=== PATIENT | female | born 1980 | race African-American/Black ===

== ENCOUNTER 2016-12-31 20:38 | Emergency (ER) | payer MEDICAID, OTHER ==
--- NOTE | 2016-12-31 21:54 | RAD ---
AP CHEST: History: Chest pain. Date: 12-31-16 FINDINGS: The lungs are well aerated. No evidence of active intrathoracic disease is seen. No evidence of effu sions, pneumonia or pneumothorax is seen. IMPRESSION: Unremarkable AP chest. POS: [facility]
== END 2016-12-31 22:30 | disposition home or self-care (01) ==
LOC: ERS 20:38
DX: R07.89 Other chest pain (principal); D64.9 Anemia, unspecified; F41.9 Anxiety disorder, unspecified; F17.210 Nicotine dependence, cigarettes, uncomplicated
CPT/HCPCS: 71010; 93005

== ENCOUNTER 2017-07-15 18:58 | Emergency (ER) | payer OTHER, SELFPAY ==
[2017-07-15 19:27] LABS: #Basophils 0.1 thou/uL (0.0-0.2); #Eosinphils 0.2 thou/uL (0.0-0.7); #Lymphocytes 3.1 thou/uL (1.20-3.40); #Monocytes 0.6 thou/uL (0.11-0.59); #Neutrophils 5.2 thou/uL (1.40-6.50); %Basophils 0.9 % (0.0-1.0); %Eosinophils 2.4 % (0.0-10.0); %Lymphocytes 33.1 % (21.0-51.0); %Monocytes 6.9 % (0.0-10.0); %Neutrophils 56.6 % (42.0-75.0); Hemoglobin 10.1 g/dL (12.0-16.0); Mean Corpuscular HGB CONC 30.7 g/dL (32.0-36.0); Mean Corpuscular Volume 65.4 fl (81.0-99.0); Mean Platelet Volume 5.1 fL (7.4-10.4); Platelet Count 362 thou/uL (130-400); RBC Distribution Width 21.7 % (11.5-14.5); Red Blood Cell (RBC) Count 5.02 mill/uL (4.20-5.40); White Blood Cell (WBC) Count 9.2 thou/uL (4.8-10.8)
[2017-07-15] MEDS ORDERED: Acetaminophen 500 MG TAB ONE (19:36)
[2017-07-15 19:46] LABS: ALT (SGPT) 21 U/L (8-55); AST (SGOT) 38 U/L (5-34); Albumin 3.9 g/dL (3.5-5.0); Alkaline Phosphatase 80 U/L (40-150); Anion Gap 11 mmol/L (10-20); BUN (Urea Nitrogen) 5 mg/dL (7.0-18.7); Bilirubin, Total 0.3 mg/dL (0.2-1.2); CK (CPK) 59 U/L (29-168); Calc. Creatinine Clearance 0 mL/min (70-130); Calcium 9.3 mg/dL (7.8-10.44); Carbon Dioxide 26 mmol/L (22-29); Chloride 105 mmol/L (98-107); Estimated GFR-MDRD Greater than 90; Globulin 3.2 g/dL (2.4-3.5); Glucose 99 mg/dL (70-105); Potassium 3.6 mmol/L (3.5-5.1); Protein, Total 7.1 g/dL (6.0-8.3); Sodium 138 mmol/L (136-145)
[2017-07-15 19:48] LABS: Anisocytosis MODERATE=16-30 cells (100X) (0-5/hpf); Elliptocytes SLIGHT = 2-5 cells (100X) (0-1/hpf); Hypochromia SLIGHT = 6-15 cells (100X) (0-5/hpf); MDiff Complete? YES; Microcytosis SLIGHT = 6-15 cells (100X) (0-5/hpf); Ovalocytes SLIGHT = 2-5 cells (100X) (0-1/hpf); PLT Morphology Comment Appears Adequate; Polychromasia MODERATE = 3-4 cells (100X) (0-2/hpf); Target Cells SLIGHT = 2-5 cells (100X) (0-1/hpf)
[2017-07-15 19:51] LABS: CKMB 0.5 ng/mL (0-6.6); Troponin I Less than 0.010 ng/mL (< 0.028)
--- NOTE | 2017-07-15 19:55 | RAD ---
PORTABLE CHEST: HISTORY: Chest pain. COMPARISON: 12/31/2016 FINDINGS: Heart size and mediastinum are within normal limits. Lungs are clear of infiltrates. No signs of fa ilure. IMPRESSION: No active intrathoracic disease. POS: [facility]
[2017-07-15] MEDS ORDERED: Mag-Al 1200 mg/1200 mg/30 ML UDCUP ONE (19:58)
[2017-07-15] MEDS ORDERED: Lidocaine Viscous Sol 2% 15 ml UD Cup ONE (19:58)
== END 2017-07-15 21:20 | disposition home or self-care (01) ==
LOC: ERS 18:58
DX: K21.9 Gastro-esophageal reflux disease without esophagitis (principal); K29.70 Gastritis, unspecified, without bleeding; Z71.6 Tobacco abuse counseling; D64.9 Anemia, unspecified; I10 Essential (primary) hypertension; F41.9 Anxiety disorder, unspecified; F17.210 Nicotine dependence, cigarettes, uncomplicated
CPT/HCPCS: 36415; 71045; 80053; 82553; 83880; 84484; 85025; 93005; 99406

== ENCOUNTER 2017-10-13 14:58 | Emergency (ER) | payer MEDICAID, SELFPAY ==
[2017-10-13 15:27] LABS: BHCG - Serum Negative (NEGATIVE); Pregs Control Background? CLEAR/WHITE (CLR/WHITE); Pregs Control Bar Appear? YES (CONTROL BAR)
[2017-10-13 15:42] LABS: ALT (SGPT) 17 U/L (8-55); AST (SGOT) 43 U/L (5-34); Alkaline Phosphatase 83 U/L (40-150); Anion Gap 15 mmol/L (10-20); BUN (Urea Nitrogen) 5 mg/dL (7.0-18.7); Bilirubin, Total 0.4 mg/dL (0.2-1.2); CK (CPK) 77 U/L (29-168); Calc. Creatinine Clearance 0 mL/min (70-130); Calcium 8.8 mg/dL (7.8-10.44); Carbon Dioxide 20 mmol/L (22-29); Chloride 106 mmol/L (98-107); Estimated GFR-MDRD Greater than 90; Globulin 3.4 g/dL (2.4-3.5); Glucose 92 mg/dL (70-105); Lipase 14 U/L (8-78); Protein, Total 7.4 g/dL (6.0-8.3); Sodium 137 mmol/L (136-145)
[2017-10-13] MEDS ORDERED: Lorazepam 2 MG/ML VIAL ONE (15:44)
--- NOTE | 2017-10-13 15:44 | RAD ---
RADIOGRAPH CHEST 1 VIEW: HISTORY: 37-year-old female with dyspnea. FINDINGS: The visualized lung talley are clear. The cardiomediastinal silhouette and hilar shadows are normal. The lateral costophrenic angles are sharp. The osseous structures appear normal. There is no pneu mothorax. IMPRESSION: Negative. delores [] POS: [facility]
[2017-10-13 15:45] LABS: Hemoglobin 11.6 g/dL (12.0-16.0); Red Blood Cell (RBC) Count 4.88 mill/uL (4.20-5.40); White Blood Cell (WBC) Count 5.7 thou/uL (4.8-10.8)
[2017-10-13 15:46] LABS: CKMB 0.8 ng/mL (0-6.6); Troponin I Less than 0.010 ng/mL (< 0.028)
[2017-10-13 15:53] LABS: #Basophils 0.1 thou/uL (0.0-0.2); #Eosinphils 0.1 thou/uL (0.0-0.7); #Lymphocytes 2.4 thou/uL (1.20-3.40); #Monocytes 0.4 thou/uL (0.11-0.59); #Neutrophils 2.7 thou/uL (1.40-6.50); %Basophils 1.2 % (0.0-1.0); %Eosinophils 2.1 % (0.0-10.0); %Lymphocytes 41.8 % (21.0-51.0); %Monocytes 7.7 % (0.0-10.0); %Neutrophils 47.1 % (42.0-75.0); Anisocytosis SLIGHT = 6-15 cells (100X) (0-5/hpf); MDiff Complete? YES; Mean Corpuscular HGB CONC 33.2 g/dL (32.0-36.0); Mean Corpuscular Hemoglobin 23.7 pg (27.0-31.0); Mean Corpuscular Volume 71.3 fL (78.0-98.0); Mean Platelet Volume 5.1 fL (7.4-10.4); Microcytosis SLIGHT = 6-15 cells (100X) (0-5/hpf); Ovalocytes SLIGHT = 2-5 cells (100X) (0-1/hpf); Platelet Count 279 thou/uL (130-400); Poikilocytosis SLIGHT = 6-15 cells (100X) (0-5/hpf); RBC Distribution Width 24.3 % (11.5-14.5); Target Cells SLIGHT = 2-5 cells (100X) (0-1/hpf)
== END 2017-10-13 17:00 | disposition home or self-care (01) ==
LOC: ERS 14:58
DX: R06.02 Shortness of breath (principal); Z71.6 Tobacco abuse counseling; D64.9 Anemia, unspecified; I10 Essential (primary) hypertension; K21.9 Gastro-esophageal reflux disease without esophagitis; F17.210 Nicotine dependence, cigarettes, uncomplicated
CPT/HCPCS: 36415; 71045; 80053; 82553; 83690; 84484; 84703; 85025; 85379; 93005; 94760; 96374; 99406; J2060

== ENCOUNTER 2018-06-03 01:17 | Emergency (ER) | payer MEDICAID, SELFPAY | END 2018-06-03 03:11 | disposition home or self-care (01) | LOC: ERS 01:17 | DX: R51 Headache (principal); D64.9 Anemia, unspecified; I10 Essential (primary) hypertension; K21.9 Gastro-esophageal reflux disease without esophagitis; F41.9 Anxiety disorder, unspecified; F17.210 Nicotine dependence, cigarettes, uncomplicated; Z79.51 Long term (current) use of inhaled steroids | CPT/HCPCS: 87804; 99284 ==

== ENCOUNTER 2019-08-22 06:45 | Observation (INO) | payer OTHER, SELFPAY ==
--- NOTE | 2019-08-22 08:17 | RAD ---
Exam: Chest one view HISTORY:Chest pain Comparison: 10/13/2017 FINDINGS: Cardiac silhouette: Normal Aorta: Unremarkable Pulmonary vessels: Normal Costophrenic angles: Clear LUNGS: No masses or consolidation. Pneumothorax: None Osseous abnormalities: None IMPRESSION: No acute cardiopulmonary process.
[2019-08-22] MEDS ORDERED: Acetaminophen 500 MG TAB ONE (08:23)
[2019-08-22] MEDS ORDERED: Nitroglycerin 2% Ointment 1 INCH/1 GM Packet ONE (08:23)
[2019-08-22 09:12] LABS: BHCG - Serum Negative (NEGATIVE); Pregs Control Background? CLEAR/WHITE (CLR/WHITE); Pregs Control Bar Appear? YES (CONTROL BAR)
[2019-08-22 09:20] LABS: #Basophils 0.1 thou/uL (0.0-0.2); #Eosinphils 0.1 thou/uL (0.0-0.7); #Lymphocytes 2.2 thou/uL (1.20-3.40); #Monocytes 0.5 thou/uL (0.11-0.59); #Neutrophils 5.2 thou/uL (1.40-6.50); %Basophils 0.8 % (0.0-1.0); %Eosinophils 1.8 % (0.0-10.0); %Lymphocytes 26.8 % (21.0-51.0); %Monocytes 6.4 % (0.0-10.0); %Neutrophils 64.3 % (42.0-75.0); Anisocytosis MODERATE=16-30 cells (100X) (0-5/hpf); Hemoglobin 8.5 g/dL (12.0-16.0); Hypochromia MODERATE=16-30 cells (100X) (0-5/hpf); Large Platelets SLIGHT; Lymphocytes 15 % (21-51); MDiff Complete? YES; Mean Corpuscular HGB CONC 29.7 g/dL (32.0-36.0); Mean Corpuscular Hemoglobin 18.1 pg (27.0-31.0); Mean Corpuscular Volume 60.9 fL (78.0-98.0); Monocytes 1 % (0-10); Neutrophil 84 % (42-75); Platelet Morphology Comment PLT clumps seen-ADEQ; RBC Distribution Width 22.7 % (11.5-14.5); Red Blood Cell (RBC) Count 4.69 mill/uL (4.20-5.40); White Blood Cell (WBC) Count 8.2 thou/uL (4.8-10.8)
[2019-08-22 09:31] LABS: ALT (SGPT) 24 U/L (8-55); AST (SGOT) 41 U/L (5-34); Alkaline Phosphatase 99 U/L (40-110); Anion Gap 11 mmol/L (10-20); BUN (Urea Nitrogen) 5 mg/dL (7.0-18.7); Bilirubin, Total 0.7 mg/dL (0.2-1.2); CK (CPK) 51 U/L (29-168); Calc. Creatinine Clearance 0 mL/min (70-130); Calcium 8.7 mg/dL (7.8-10.44); Carbon Dioxide 25 mmol/L (22-29); Chloride 105 mmol/L (98-107); Estimated GFR-MDRD Greater than 90; Globulin 3.3 g/dL (2.4-3.5); Glucose 94 mg/dL (70-105); Lipase 9 U/L (8-78); Potassium 3.7 mmol/L (3.5-5.1); Protein, Total 7.3 g/dL (6.0-8.3); Sodium 137 mmol/L (136-145)
[2019-08-22] MEDS ORDERED: Ondansetron PF 4 MG/2 ML Vial IVP PRN (10:39)
[2019-08-22] MEDS ORDERED: Acetaminophen 325 MG TAB PO PRN (10:39)
[2019-08-22] MEDS ORDERED: Senokot S 8.6-50 MG TAB PO PRN (10:39)
[2019-08-22 12:24] VITALS: BMI 30.2
[2019-08-22] MEDS ORDERED: Mag-Al 1200 mg/1200 mg/30 ML UDCUP PO PRN (14:17)
[2019-08-22] MEDS: ALPRAZolam 0.25 MG TAB PO PRN ×2 (14:33→20:28)
--- NOTE | 2019-08-22 18:05 | HP ---
CHIEF COMPLAINT: Chest pain. HISTORY OF PRESENT ILLNESS: A 39-year-old female without significant past medical history, presented with cough and diarrhea of a few days' duration. She does have a smoker's cough. She did have some chest pressure and burning sensation this morning and she got 4 doses of baby aspirin and 1 nitroglycerin in the ER, but she did have some ongoing bowel pressure. The initial labs are quite unremarkable except hemoglobin 8.2. Her initial chest x-ray is negative. Troponin negative. EKG showed nonspecific ST-T wave changes in lead II, II, and aVF. The patient is brought in because of concern for COVID . The patient has no history of [place] or stroke in the past. She is not on any blood pressure medications and she is not diabetic. REVIEW OF SYSTEMS: A 13-point review of systems reviewed. Pertinents are addressed in the history of present illness. No fever, night sweats, or chills. She does have a smoker's cough in the morning. No nausea, vomiting, abdominal pain, constipation, diarrhea, hematuria, dysuria, or hematochezia. ALLERGIES: SHE HAS NO KNOWN DRUG ALLERGY. MEDICATIONS: 1. Aspirin 81 mg daily. 2. Ferrous sulfate 325 twice a day. 3. Folic acid 1 mg daily. 4. Potassium chloride 20 mEq. 5. Thiamine 100 mg daily. PAST MEDICAL HISTORY: 1. Chronic anemia. 2. . SOCIAL HISTORY: Smokes daily a few cigarettes. Occasional alcohol. FAMILY HISTORY: Father had type 2 diabetes mellitus. Mother had asthma symptoms. PHYSICAL EXAMINATION: VITAL SIGNS: Temperature 98.5, pulse 79, blood pressure 141/87, and saturating 100% in the room air. GENERAL: She is alert and oriented. She is actually quite anxious to go home as she feels that her children will be left alone in the house. CARDIOVASCULAR: Regular rate and rhythm without murmurs, rubs, or gallops. LUNGS: Clear to auscultation bilaterally without wheezing, rales, or rhonchi. ABDOMEN: Soft, nontender, and nondistended. Good bowel sounds. EXTREMITIES: Without any pitting edema. NEUROLOGIC: No focal deficits. PSYCHIATRIC: Appropriate. She is a little distressed with the fact that she needs to stay here for overnight. LABORATORY DATA: Sodium is 137 and creatinine is 0.84. Rest of the BMP panel normal range. Troponin x3 negative. CBC in the normal range except hemoglobin of 8.5. Chest x-ray negative without any infiltrate. EKG, sinus with a rate of 82 beats per minute. IMPRESSION AND PLAN: This is a 39-year-old female without significant past medical history, had a smoker's cough and some loose stools, admitted for overnight observation to rule out COVID . I am waiting for more lab results to ascertain. However, since this was concern for a COVID and patient has 3 children at home, we will wait for results to be negative. She can continue with outpatient workup through her primary care physician for cardiac ischemic workup. At this point, I do not see any clinical indication to put her through a stress test. Await COVID results. Continue her home medications. Job ID: [id number] [facility]
[2019-08-22] MEDS: Ferrous Sulfate 325 MG TAB PO SCH (18:30)
[2019-08-23] MEDS ORDERED: Potassium Chloride 20 MEQ TAB PO SCH (08:00)
[2019-08-23] MEDS ORDERED: Multivitamin W/ Minerals 1 TAB PO SCH (09:00)
[2019-08-23] MEDS ORDERED: Folic Acid 1 MG TAB PO SCH (09:00)
[2019-08-23] MEDS ORDERED: Thiamine 100 MG TAB PO SCH (09:00)
[2019-08-23] MEDS ORDERED: Aspirin 81 mg Enteric Coated Tablet PO SCH (09:00)
[2019-08-23] MEDS: Ferrous Sulfate 325 MG TAB PO SCH (09:11)
[2019-08-23] MEDS: ALPRAZolam 0.25 MG TAB PO PRN (09:12)
[2019-08-23 09:22] LABS: INR-International Normal Ratio 1.1; PTT 32.6 sec (22.9-36.1); Prothrombin Time 13.7 sec (12.0-14.7)
[2019-08-23 09:28] LABS: D-Dimer Test Less than 0.27 *mcg/mL (0.27-0.43)
[2019-08-23 12:20] LABS: SARS-CoV-2 MS2 Positive; SARS-CoV-2 N Gene Negative; SARS-CoV-2 S Gene Negative; SARS-CoV-2 orf1ab Negative
[2019-08-23 12:33] VITALS: BP 128/74; TEMP 98.8
--- NOTE | 2019-08-24 06:58 | DIS ---
DATE OF ADMISSION: 08/22/2019 DATE OF DISCHARGE: 08/23/2019 DISCHARGE DIAGNOSES: 1. Bronchitis. 2. COVID ruled out. 3. Noncardiac chest pain, probably related to bronchitis. 4. Tobacco abuse. DISCHARGE MEDICATIONS: Thiamine 100 mg daily. PHYSICAL EXAMINATION: VITAL SIGNS: On the day of discharge, temperature 98.8, pulse 79, blood pressure 128/74, saturating 100% on room air. GENERAL: She is alert, oriented, not in any respiratory distress. CARDIOVASCULAR: Regular rate and rhythm without murmurs, rubs, or gallops. LUNGS: Clear. ABDOMEN: Quite benign. HOSPITAL COURSE: This is a 39-year-old female with tobacco abuse and having a morning smoker's cough, presented with chest pain. She ruled out for acute coronary syndrome with serial troponins. EKG, nonspecific ST-T wave changes. Due to her family of 3 children, there was concern for COVID and that was ruled out. If she has recurrent chest pain, she can do outpatient stress test through her primary care physician. She does not require any antibiotics at this time. She is afebrile. She had normal white count. Her D-dimer is 0.27. Activated PTT 32.6. Ferritin level 6.03. Liver function tests in the normal range. Creatinine is 0.84. CRP less than 0.5. The patient is hemodynamically stable, does not have any respiratory dysfunction. Clinically sound enough to be discharged home today. DISCHARGE INSTRUCTIONS: 1. Activity as tolerated. 2. Regular diet. 3. Follow up with the PCP in 1 week. If you have recurrent chest pain, please visit ER or call your PCP. TIME SPENT: Discharge time took over 35 minutes. Job ID: [id number] [facility]
--- NOTE | 2019-08-29 14:18 | EKG ---
Test Reason : EMERGENCY Blood Pressure : / mmHG Vent. Rate : 082 BPM Atrial Rate : 082 BPM P-R Int : 132 ms QRS Dur : 092 ms QT Int : 392 ms P-R-T Axes : 041 048 -13 degrees QTc Int : 457 ms Normal sinus rhythm ST abnormality, possible digitalis effect Abnormal QRS-T angle, consider primary T wave abnormality Abnormal ECG Confirmed by SUSSY OROPEZA M.D. ([id number]), editorial writer JESUS ROONEY ([id number]) on 08/29/2019 2:18:02 PM Referred By: Confirmed By:SUSSY OROPEZA M.D.
== END 2019-08-23 14:30 | disposition home or self-care (01) ==
LOC: ERS 06:45 → 2SW 12:08
PROVIDERS: ADMIT Internal Medicine; ATTEND Internal Medicine
DX: R07.89 Other chest pain (principal); J40 Bronchitis, not specified as acute or chronic; R19.7 Diarrhea, unspecified; F17.210 Nicotine dependence, cigarettes, uncomplicated; Z20.828 Contact with and (suspected) exposure to other viral communicable diseases; Z79.82 Long term (current) use of aspirin; Z79.899 Other long term (current) drug therapy
CPT/HCPCS: 36415; 71045; 80053; 82550; 82728; 83690; 84484; 84703; 85025; 85379; 85610; 85730; 86140; 87635; 93005; G0378; U0003

== ENCOUNTER 2019-09-13 14:41 | Emergency (ER) | payer SELFPAY | END 2019-09-13 16:03 | disposition home or self-care (01) | LOC: ERS 14:41 | DX: R55 Syncope and collapse (principal); D64.9 Anemia, unspecified; I10 Essential (primary) hypertension; K21.9 Gastro-esophageal reflux disease without esophagitis; F41.9 Anxiety disorder, unspecified; F17.210 Nicotine dependence, cigarettes, uncomplicated | CPT/HCPCS: 93005 ==

== ENCOUNTER 2020-01-13 13:14 | Emergency (ER) | payer BC ==
--- NOTE | 2020-01-13 14:45 | RAD ---
PORTABLE CHEST 1 VIEW: Date: 01/13/2020 Time: 1420 hours HISTORY: Chest pain. COMPARISON: 11/07/2019. FINDINGS: The heart size is normal. The lungs are expanded without lobar consolidation, pneumothoraces, or pleu ral effusions. IMPRESSION: No radiographic evidence of acute cardiopulmonary process. POS: [facility]
--- NOTE | 2020-01-16 15:32 | EKG ---
Test Reason : Blood Pressure : / mmHG Vent. Rate : 086 BPM Atrial Rate : 086 BPM P-R Int : 158 ms QRS Dur : 082 ms QT Int : 358 ms P-R-T Axes : 058 046 -31 degrees QTc Int : 428 ms Normal sinus rhythm Possible Left atrial enlargement T wave abnormality, consider inferior ischemia Abnormal ECG Confirmed by ARMAAN THAKKAR ([id number]), associate entertainment editor JESUS ROONEY ([id number]) on 01/16/2020 3:32:28 PM Referred By: Confirmed By:ARMAAN Ace
== END 2020-01-13 14:49 | disposition home or self-care (01) ==
LOC: ERS 13:14
DX: R07.9 Chest pain, unspecified (principal); D64.9 Anemia, unspecified; K21.9 Gastro-esophageal reflux disease without esophagitis; I10 Essential (primary) hypertension; F17.210 Nicotine dependence, cigarettes, uncomplicated
CPT/HCPCS: 71045; 93005; 94760

== ENCOUNTER 2020-03-21 16:21 | Emergency (ER) | payer BC, OTHER ==
[2020-03-21] MEDS ORDERED: Lorazepam 2 MG/ML VIAL ONE (16:43)
--- NOTE | 2020-03-21 16:57 | RAD ---
Chest one view HISTORY: Chest pain. COMPARISON: 01/13/2020. FINDINGS: Cardiac silhouette and pulmonary vasculature are unremarkable. Mediastinum is midline. No confluent airspace consolidation or evidence of pneumothorax. IMPRESSION : No abnormalities are demonstrated.
== END 2020-03-21 18:06 | disposition home or self-care (01) ==
LOC: ERS 16:21
DX: F41.0 Panic disorder [episodic paroxysmal anxiety] (principal); K21.9 Gastro-esophageal reflux disease without esophagitis; D64.9 Anemia, unspecified; F17.210 Nicotine dependence, cigarettes, uncomplicated
CPT/HCPCS: 71045; 93005; 96372; J2060

== ENCOUNTER 2022-03-31 09:14 | Observation (INO) | payer BC, SELFPAY ==
[2022-03-31 10:36] LABS: BHCG - Serum Negative (NEGATIVE); Pregs Control Background? CLEAR/WHITE (CLR/WHITE); Pregs Control Bar Appear? YES (CONTROL BAR)
[2022-03-31 10:52] LABS: ALT (SGPT) 39 U/L (8-55); AST (SGOT) 96 U/L (5-34); Albumin 3.3 g/dL (3.5-5.0); Alkaline Phosphatase 142 U/L (40-110); Anion Gap 13 mmol/L (10-20); BUN (Urea Nitrogen) Less than 4 mg/dL (7.0-18.7); Bilirubin, Total 0.4 mg/dL (0.2-1.2); Calc. Creatinine Clearance 0 mL/min (70-130); Calcium 8.8 mg/dL (7.8-10.44); Carbon Dioxide 26 mmol/L (22-29); Chloride 105 mmol/L (98-107); Estimated GFR 107; Globulin 3.2 g/dL (2.4-3.5); Glucose 94 mg/dL (70-105); Lipase 18 U/L (8-78); Potassium 3.8 mmol/L (3.5-5.1); Protein, Total 6.5 g/dL (6.0-8.3); Sodium 140 mmol/L (136-145)
[2022-03-31 10:54] LABS: #Basophils 0.1 thou/uL (0.0-0.2); #Eosinphils 0.2 thou/uL (0.0-0.7); #Lymphocytes 1.9 thou/uL (1.20-3.40); #Monocytes 0.8 thou/uL (0.11-0.59); #Neutrophils 5.6 thou/uL (1.40-6.50); %Basophils 0.8 % (0.0-1.0); %Eosinophils 1.8 % (0.0-10.0); %Lymphocytes 22.1 % (21.0-51.0); %Monocytes 8.8 % (0.0-10.0); %Neutrophils 66.5 % (42.0-75.0); Anisocytosis MODERATE=16-30 cells (100X) (0-5/hpf); Hemoglobin 9.7 g/dL (12.0-16.0); Hypochromia SLIGHT = 6-15 cells (100X) (0-5/hpf); MDiff Complete? YES; Mean Corpuscular HGB CONC 31.8 g/dL (32.0-36.0); Mean Corpuscular Hemoglobin 22.7 pg (27.0-31.0); Mean Corpuscular Volume 71.6 fl (78.0-98.0); Mean Platelet Volume 10.6 fL (7.4-10.4); Microcytosis MODERATE=15-30 cells (100X) (0-5/hpf); Platelet Count 370 10x3/uL (130-400); Platelet Morphology Comment Appears Adequate; Polychromasia SLIGHT = 2-3 cells (100X) (0-2/hpf); Red Blood Cell (RBC) Count 4.28 mill/uL (4.20-5.40); Target Cells SLIGHT = 2-5 cells (100X) (0-1/hpf); White Blood Cell (WBC) Count 8.4 10x3/uL (4.8-10.8)
[2022-03-31] MEDS ORDERED: Ondansetron PF 4 MG/2 ML Vial IVP PRN (13:41)
[2022-03-31] MEDS ORDERED: HYDROcodone/Acetaminophen 5/325 mg Tablet PO PRN (13:41)
[2022-03-31] MEDS ORDERED: Morphine 2 MG/ML VIAL SLOW IVP PRN (13:41)
[2022-03-31] MEDS ORDERED: Acetaminophen 325 MG TAB PO PRN (13:41)
[2022-03-31] MEDS ORDERED: Nitroglycerin 0.4 MG TAB (25 Tab Bottle) SL PRN (13:41)
[2022-03-31] MEDS ORDERED: Guaifenesin DM 100-10/5 ML UDCUP PO PRN (13:41)
[2022-03-31 13:56] LABS: Troponin I Less than 0.010 ng/mL (< 0.028)
[2022-03-31 14:23] VITALS: BMI 26.0
[2022-03-31 14:40] LABS: Iron 15 ug/dL (50-170); Iron Binding Capacity, Total 401 mcg/dL (265-497)
[2022-03-31 14:40] LABS: Acetaminophen Less than 10.0 mcg/mL (10.0-30.0); Alcohol Less than 10 mg/dL (Less than 10); Salicylate Less than 8.0 mg/dL (15.0-30.0)
[2022-03-31] MEDS ORDERED: Aspirin Chewable 81 MG TAB PO SCH (14:45)
[2022-03-31 15:06] LABS: Ferritin 14.41 ng/mL (10-291)
[2022-03-31] MEDS ORDERED: Ketorolac Tromethamine 30 MG/ML VIAL IVP PRN (16:37)
[2022-03-31] MEDS ORDERED: Mag-Al Plus 1200 MG/1200 MG/120 MG/30 ML UDCUP PO PRN (16:38)
[2022-03-31 16:46] LABS: Troponin I Less than 0.010 ng/mL (< 0.028)
[2022-03-31 17:30] LABS: Amphetamine Not Detected (NotDetected); Barbiturates Screen Not Detected (NotDetected); Benzodiazepine Screen Not Detected (NotDetected); Cocaine Metabolite Screen Not Detected (NotDetected); Methadone Not Detected (NotDetected); Methamphetamine Not Detected (NotDetected); Opiate Screen Not Detected (NotDetected); Oxycodone Screen Not Detected (NotDetected); Phencyclidine (PCP) Not Detected (NotDetected); THC/Cannabinoid Screen Not Detected (NotDetected); Tricyclic Screen Not Detected (NotDetected)
[2022-03-31] MEDS: Ibuprofen 200 MG TAB PO SCH (20:57)
[2022-03-31] MEDS: Metoprolol Tartrate 25 MG TAB PO SCH (20:59)
[2022-03-31] MEDS: ALPRAZolam 1 MG TAB PO PRN (20:59)
[2022-04-01 05:43] LABS: #Basophils 0.1 thou/uL (0.0-0.2); #Eosinphils 0.2 thou/uL (0.0-0.7); #Lymphocytes 1.9 thou/uL (1.20-3.40); #Monocytes 0.6 thou/uL (0.11-0.59); #Neutrophils 4.7 thou/uL (1.40-6.50); %Eosinophils 2.7 % (0.0-10.0); %Lymphocytes 25.4 % (21.0-51.0); %Neutrophils 62.9 % (42.0-75.0); Hemoglobin 9.4 g/dL (12.0-16.0); Mean Corpuscular HGB CONC 30.1 g/dL (32.0-36.0); Mean Corpuscular Hemoglobin 21.7 pg (27.0-31.0); Mean Corpuscular Volume 72.1 fl (78.0-98.0); Mean Platelet Volume 6.7 fL (7.4-10.4); Platelet Count 257 10x3/uL (130-400); RBC Distribution Width 23.2 % (11.5-14.5); Red Blood Cell (RBC) Count 4.33 mill/uL (4.20-5.40); White Blood Cell (WBC) Count 7.5 10x3/uL (4.8-10.8)
[2022-04-01 05:53] LABS: ALT (SGPT) 35 U/L (8-55); AST (SGOT) 58 U/L (5-34); Albumin 3.1 g/dL (3.5-5.0); Alkaline Phosphatase 135 U/L (40-110); Anion Gap 12 mmol/L (10-20); BUN (Urea Nitrogen) 4 mg/dL (7.0-18.7); Bilirubin, Total 0.9 mg/dL (0.2-1.2); Calc. Creatinine Clearance 143 mL/min (70-130); Calcium 9.1 mg/dL (7.8-10.44); Carbon Dioxide 26 mmol/L (22-29); Cardiac Risk 2.4 (Less than 4.5); Chloride 103 mmol/L (98-107); Cholesterol 107 mg/dl (< 200 Desired); Estimated GFR 113; Glucose 86 mg/dL (70-105); HDL Cholesterol 45 mg/dL (>60 Neg Risk); LDL Cholesterol, Calculated 50 mg/dL; Potassium 3.8 mmol/L (3.5-5.1); Protein, Total 6.1 g/dL (6.0-8.3); Sodium 137 mmol/L (136-145); Triglycerides 60 mg/dL (Less than 150)
[2022-04-01] MEDS: Metoprolol Tartrate 25 MG TAB PO SCH (08:21)
[2022-04-01] MEDS: Ibuprofen 200 MG TAB PO SCH (08:23)
[2022-04-01] MEDS ORDERED: Aspirin Chewable 81 MG TAB PO SCH (09:00)
[2022-04-01] MEDS: ALPRAZolam 1 MG TAB PO PRN (10:24)
[2022-04-01 13:50] VITALS: BP 115/80; TEMP 97.8
== END 2022-04-01 16:32 | disposition home or self-care (01) ==
LOC: ERS 09:14 → 2SW 13:07
PROVIDERS: ADMIT Internal Medicine; ATTEND Internal Medicine
DX: R07.82 Intercostal pain (principal); I10 Essential (primary) hypertension; F10.10 Alcohol abuse, uncomplicated; F17.210 Nicotine dependence, cigarettes, uncomplicated; D50.9 Iron deficiency anemia, unspecified; Z20.822 Contact with and (suspected) exposure to COVID-19; Y90.0 Blood alcohol level of less than 20 mg/100 ml
CPT/HCPCS: 36415; 71045; 78452; 80053; 80061; 80306; 80307; 82607; 82728; 83540; 83550; 83690; 84484; 84703; 85025; 85379; 93005; 93017; 93306; 94760; A9500; G0378; U0003; U0005

== ENCOUNTER 2022-06-22 13:03 | Emergency (ER) | payer SELFPAY ==
[2022-06-22] MEDS ORDERED: Lidocaine 2% Viscous Solution 10 ML, Aluminum & Magnesium Hydroxide 30 ML SSW SCH (13:45)
[2022-06-22 13:47] LABS: #Basophils 0.1 thou/uL (0.0-0.2); #Eosinphils 0.1 thou/uL (0.0-0.7); #Lymphocytes 1.8 thou/uL (1.20-3.40); #Monocytes 0.6 thou/uL (0.11-0.59); #Neutrophils 5.3 thou/uL (1.40-6.50); %Basophils 1.1 % (0.0-1.0); %Eosinophils 0.8 % (0.0-10.0); %Lymphocytes 23.4 % (21.0-51.0); %Monocytes 7.1 % (0.0-10.0); %Neutrophils 67.7 % (42.0-75.0); Hemoglobin 11.5 g/dL (12.0-16.0); Mean Corpuscular HGB CONC 31.4 g/dL (32.0-36.0); Mean Corpuscular Volume 76.4 fl (78.0-98.0); Mean Platelet Volume 10.9 fL (7.4-10.4); Platelet Count 256 10x3/uL (130-400); RBC Distribution Width 19.3 % (11.5-14.5); White Blood Cell (WBC) Count 7.8 10x3/uL (4.8-10.8)
[2022-06-22 13:55] LABS: BHCG - Serum Negative (NEGATIVE)
[2022-06-22] MEDS ORDERED: LORazepam 2 MG/ML SYR.(CARPUJECT) ONE (13:55)
[2022-06-22] MEDS ORDERED: Mag-Al 1200 mg/1200 mg/30 ML UDCUP ONE (13:55)
[2022-06-22] MEDS ORDERED: Ondansetron PF 4 MG/2 ML Vial ONE (13:55)
[2022-06-22] MEDS ORDERED: Lidocaine Viscous Sol 2% 15 ml UD Cup ONE (13:55)
[2022-06-22 13:56] LABS: Pregs Control Background? CLEAR/WHITE (CLR/WHITE); Pregs Control Bar Appear? YES (CONTROL BAR)
[2022-06-22 14:12] LABS: ALT (SGPT) 55 U/L (8-55); AST (SGOT) 131 U/L (5-34); Albumin 3.9 g/dL (3.5-5.0); Alkaline Phosphatase 194 U/L (40-110); Anion Gap 14 mmol/L (10-20); BUN (Urea Nitrogen) Less than 4 mg/dL (7.0-18.7); Bilirubin, Total 0.9 mg/dL (0.2-1.2); Calc. Creatinine Clearance 0 mL/min (70-130); Calcium 9.5 mg/dL (7.8-10.44); Carbon Dioxide 24 mmol/L (22-29); Chloride 102 mmol/L (98-107); Estimated GFR 107; Globulin 3.9 g/dL (2.4-3.5); Glucose 102 mg/dL (70-105); Lipase 13 U/L (8-78); Potassium 3.7 mmol/L (3.5-5.1); Protein, Total 7.8 g/dL (6.0-8.3); Sodium 136 mmol/L (136-145)
[2022-06-22] MEDS ORDERED: Thiamine HCl 100 MG, Folic Acid 1 MG in Dextrose 5 %-0.45 % NaCl 1,000 ML IVPB SCH (14:15)
== END 2022-06-22 16:44 | disposition home or self-care (01) ==
LOC: ERS 13:03
DX: R07.89 Other chest pain (principal); K29.70 Gastritis, unspecified, without bleeding; I10 Essential (primary) hypertension; F17.210 Nicotine dependence, cigarettes, uncomplicated
CPT/HCPCS: 36415; 71046; 76705; 80053; 83690; 84484; 84703; 85025; 93005; 96361; 96374; 96375; J2060; J2405; J3411; J7042

== ENCOUNTER 2022-10-05 16:17 | Inpatient (IN) | payer OTHER, SELFPAY ==
[2022-10-05] MEDS ORDERED: LORazepam 2 MG/ML SYR.(CARPUJECT) ONE (16:40)
[2022-10-05] MEDS ORDERED: chlordiazePOXIDE HCl 25 MG CAP PO SCH (16:45)
[2022-10-05] MEDS ORDERED: Octreotide Acetate 1,250 MCG in Sodium Chloride 0.9% 250 ML 250 ML IVPB SCH ×2 (16:45→18:45)
[2022-10-05 16:48] LABS: #Basophils 0.1 thou/uL (0.0-0.2); #Eosinphils 0.1 thou/uL (0.0-0.7); #Monocytes 0.6 thou/uL (0.11-0.59); #Neutrophils 5.4 thou/uL (1.40-6.50); %Basophils 0.9 % (0.0-1.0); %Eosinophils 1.6 % (0.0-10.0); %Monocytes 7.2 % (0.0-10.0); %Neutrophils 66.1 % (42.0-75.0); Hemoglobin 8.4 g/dL (12.0-16.0); Mean Corpuscular HGB CONC 29.2 g/dL (32.0-36.0); Mean Corpuscular Hemoglobin 20.9 pg (27.0-31.0); Mean Corpuscular Volume 71.6 fl (78.0-98.0); Mean Platelet Volume 10.7 fL (7.4-10.4); Platelet Count 275 10x3/uL (130-400); RBC Distribution Width 19.9 % (11.5-14.5); Red Blood Cell (RBC) Count 4.02 mill/uL (4.20-5.40); White Blood Cell (WBC) Count 8.2 10x3/uL (4.8-10.8)
[2022-10-05 17:00] LABS: INR-International Normal Ratio 1.1; PTT 31.7 sec (22.9-36.1); Prothrombin Time 14.9 sec (12.0-14.7)
[2022-10-05 17:15] LABS: Acetaminophen Less than 10 mcg/mL (10.0-30.0); Alcohol Less than 10.0 mg/dL (Less than 10); Lipase 26 U/L (8-78); Salicylate Less than 8.0 mg/dL (15.0-30.0)
[2022-10-05 17:18] LABS: BHCG - Serum Negative (NEGATIVE); Pregs Control Background? CLEAR/WHITE (CLR/WHITE); Pregs Control Bar Appear? YES (CONTROL BAR)
[2022-10-05 17:21] LABS: ALT (SGPT) 22 U/L (8-55); AST (SGOT) 62 U/L (5-34); Albumin 3.3 g/dL (3.5-5.0); Alkaline Phosphatase 142 U/L (40-110); Anion Gap 11 mmol/L (10-20); Anisocytosis SLIGHT = 6-15 cells HPF (0-5); BUN (Urea Nitrogen) Less than 4 mg/dL (7.0-18.7); Bilirubin, Total 0.4 mg/dL (0.2-1.2); Calc. Creatinine Clearance 0 mL/min (70-130); Calcium 8.7 mg/dL (7.8-10.44); Carbon Dioxide 25 mmol/L (22-29); CellaVision Operator ID LAB.KB; Chloride 104 mmol/L (98-107); Estimated GFR 115; Globulin 3.2 g/dL (2.4-3.5); Glucose 96 mg/dL (70-105); Hypochromia MODERATE=16-30 cells HPF (0-5); Microcytosis SLIGHT = 6-15 cells HPF (0-5); Platelet Adequacy Comment Platelets Normal; Polychromasia SLIGHT = 2-3 cells HPF (0-2); Potassium 3.4 mmol/L (3.5-5.1); Protein, Total 6.5 g/dL (6.0-8.3); Sodium 137 mmol/L (136-145); Target Cells SLIGHT = 2-5 cells HPF (0-1)
[2022-10-05 18:32] LABS: Bilirubin Negative (Negative); Blood, Urine 3+ (Negative); CAUTI Indications for Culture Acute Hematuria; Clarity Turbid (Clear); Glucose, Urine (Dipstick) Normal (Negative); Ketone, Urine Trace mg/dL (Negative); Leukocyte 250 Leu/uL (Negative); Nitrite Negative (Negative); Protein, Urine (Dipstick) 100 mg/dL (Neg-Trace); RBC/HPF Greater than 50 HPF (0-3); Specific Gravity, Urine 1.024 (1.002-1.036); Squamous Epithelial 21-50 HPF (0-3); WBC/HPF 21-50 HPF (0-3); pH, Urine 7.5 (5.0-9.0)
[2022-10-05 18:33] LABS: Bacteria/HPF 1+ HPF (None Seen)
[2022-10-05 18:34] LABS: Amphetamine Not Detected (NotDetected); Barbiturates Screen Not Detected (NotDetected); Benzodiazepine Screen Not Detected (NotDetected); Cocaine Metabolite Screen Not Detected (NotDetected); Methadone Not Detected (NotDetected); Methamphetamine Not Detected (NotDetected); Opiate Screen Not Detected (NotDetected); Oxycodone Screen Not Detected (NotDetected); Phencyclidine (PCP) Not Detected (NotDetected); THC/Cannabinoid Screen Not Detected (NotDetected); Tricyclic Screen Not Detected (NotDetected); Urine Culture Reflex Yes Yes
[2022-10-05] MEDS ORDERED: Lorazepam 2 MG/ML VIAL IM PRN (18:36)
[2022-10-05] MEDS ORDERED: Lorazepam 1 MG TAB PO PRN (18:36)
[2022-10-05] MEDS ORDERED: Ondansetron ODT 4 MG TAB PO PRN (18:36)
[2022-10-05] MEDS ORDERED: Ondansetron PF 4 MG/2 ML Vial IVP PRN (18:39)
[2022-10-05] MEDS ORDERED: Calcium Carbonate 500 MG ChewTAB PO PRN (18:39)
[2022-10-05] MEDS ORDERED: Electrolyte Replacement Protocol 1 EACH FS PRN (18:45)
[2022-10-05] MEDS ORDERED: Pantoprazole 80 MG in Sodium Chloride 0.9% 100 ML IVP SCH (18:45)
[2022-10-05] MEDS ORDERED: Multivitamins, Adult 10 ML, Thiamine HCl 100 MG, Folic Acid 1 MG in Dextrose 5 %-0.45 %... IV SCH (18:45)
[2022-10-05] MEDS ORDERED: Morphine 4 MG/ML VIAL ONE (18:46)
[2022-10-05 20:01] VITALS: BMI 26.1
[2022-10-05] MEDS: Lorazepam 1 MG TAB PO SCH (20:29)
[2022-10-05] MEDS: Thiamine HCl 200 MG/2 ML VIAL SLOW IVP SCH (20:31)
[2022-10-05] MEDS ORDERED: Dexmedetomidine In 0.9 % NaCl 100 ML IVPB SCH (21:00)
[2022-10-05] MEDS ORDERED: Dexmedetomidine 400 MCG, Admixture Fee 1 EACH in Sodium Chloride 0.9% 96 ML IVPB SCH (21:15)
[2022-10-05] MEDS: Potassium Chloride 20 MEQ in Premix Bag 1 BAG IVPB SCH (22:10)
[2022-10-05 23:30] LABS: Hemoglobin 7.3 g/dL (12.0-16.0)
[2022-10-06] MEDS: Potassium Chloride 20 MEQ in Premix Bag 1 BAG IVPB SCH (00:28)
[2022-10-06] MEDS: Lorazepam 1 MG TAB PO SCH ×5 (01:04→23:47)
[2022-10-06] MEDS: Pantoprazole 80 MG, Admixture Fee 1 EACH in Sodium Chloride 0.9% 100 ML IVPB SCH ×2 (01:06→13:20)
[2022-10-06 03:00] LABS: #Basophils 0.1 thou/uL (0.0-0.2); #Eosinphils 0.1 thou/uL (0.0-0.7); #Monocytes 0.7 thou/uL (0.11-0.59); #Neutrophils 6.3 thou/uL (1.40-6.50); %Basophils 0.6 % (0.0-1.0); %Eosinophils 1.3 % (0.0-10.0); %Lymphocytes 25.5 % (21.0-51.0); %Monocytes 6.7 % (0.0-10.0); %Neutrophils 65.6 % (42.0-75.0); Hemoglobin 7.1 g/dL (12.0-16.0); Mean Corpuscular HGB CONC 29.1 g/dL (32.0-36.0); Mean Corpuscular Hemoglobin 21.1 pg (27.0-31.0); Mean Corpuscular Volume 72.6 fl (78.0-98.0); Mean Platelet Volume 10.5 fL (7.4-10.4); Platelet Count 245 10x3/uL (130-400); RBC Distribution Width 19.9 % (11.5-14.5); Red Blood Cell (RBC) Count 3.36 mill/uL (4.20-5.40); White Blood Cell (WBC) Count 9.6 10x3/uL (4.8-10.8)
[2022-10-06 04:22] LABS: ALT (SGPT) 18 U/L (8-55); AST (SGOT) 48 U/L (5-34); Alkaline Phosphatase 125 U/L (40-110); Anion Gap 11 mmol/L (10-20); BUN (Urea Nitrogen) 5 mg/dL (7.0-18.7); Bilirubin, Total 0.6 mg/dL (0.2-1.2); Calc. Creatinine Clearance 143 mL/min (70-130); Calcium 8.3 mg/dL (7.8-10.44); Carbon Dioxide 23 mmol/L (22-29); Chloride 105 mmol/L (98-107); Estimated GFR 113; Glucose 144 mg/dL (70-105); Potassium 4.4 mmol/L (3.5-5.1); Sodium 135 mmol/L (136-145)
[2022-10-06 05:55] LABS: Hemoglobin 7.3 g/dL (12.0-16.0)
[2022-10-06] MEDS: Folic Acid 1 MG TAB PO SCH (07:32)
[2022-10-06] MEDS: Multivit, Therapeutic 1 TAB PO SCH (07:32)
[2022-10-06] MEDS ORDERED: Nicotine 21 MG PATCH TD PRN (07:41)
[2022-10-06] MEDS ORDERED: Lidocaine 1% PF 5 ML VIAL ONE (10:31)
[2022-10-06] MEDS ORDERED: PROPOFOL 200 MG/20 ML VIAL ONE (10:31)
[2022-10-06 13:48] LABS: Hemoglobin 9.1 g/dL (12.0-16.0)
[2022-10-06] MEDS: Thiamine HCl 200 MG/2 ML VIAL SLOW IVP SCH (17:12)
[2022-10-06] MEDS ORDERED: Lorazepam 1 MG TAB PO PRN (18:36)
[2022-10-06] MEDS ORDERED: Pantoprazole 80 MG, Admixture Fee 1 EACH in Sodium Chloride 0.9% 100 ML IVPB SCH (22:30)
[2022-10-07 03:07] LABS: #Eosinphils 0.2 thou/uL (0.0-0.7); #Monocytes 0.4 thou/uL (0.11-0.59); #Neutrophils 5.4 thou/uL (1.40-6.50); %Basophils 0.5 % (0.0-1.0); %Eosinophils 2.5 % (0.0-10.0); %Lymphocytes 23.5 % (21.0-51.0); %Monocytes 5.4 % (0.0-10.0); %Neutrophils 67.7 % (42.0-75.0); Mean Platelet Volume 10.8 fL (7.4-10.4); Platelet Count 196 10x3/uL (130-400); RBC Distribution Width 21.5 % (11.5-14.5); White Blood Cell (WBC) Count 7.9 10x3/uL (4.8-10.8)
[2022-10-07 03:28] LABS: Mean Corpuscular Volume 75.6 fl (78.0-98.0)
[2022-10-07 03:39] LABS: ALT (SGPT) 29 U/L (8-55); AST (SGOT) 117 U/L (5-34); Albumin 3.4 g/dL (3.5-5.0); Alkaline Phosphatase 129 U/L (40-110); Anion Gap 10 mmol/L (10-20); BUN (Urea Nitrogen) 4 mg/dL (7.0-18.7); Bilirubin, Total 0.8 mg/dL (0.2-1.2); Calc. Creatinine Clearance 133 mL/min (70-130); Calcium 9.1 mg/dL (7.8-10.44); Carbon Dioxide 29 mmol/L (22-29); Chloride 101 mmol/L (98-107); Estimated GFR 107; Globulin 3.4 g/dL (2.4-3.5); Glucose 95 mg/dL (70-105); Protein, Total 6.8 g/dL (6.0-8.3); Sodium 136 mmol/L (136-145)
[2022-10-07] MEDS: Lorazepam 1 MG TAB PO SCH ×2 (07:24→12:47)
[2022-10-07] MEDS: Folic Acid 1 MG TAB PO SCH (08:58)
[2022-10-07] MEDS: Multivit, Therapeutic 1 TAB PO SCH (08:58)
[2022-10-07] MEDS: Pantoprazole 40 MG VIAL IVP SCH ×2 (08:58→20:40)
[2022-10-07] MEDS: Thiamine HCl 200 MG/2 ML VIAL SLOW IVP SCH (17:57)
[2022-10-07] MEDS: Lorazepam 0.5 MG TAB PO SCH (17:57)
[2022-10-07] MEDS ORDERED: Lorazepam 1 MG TAB PO PRN (18:36)
[2022-10-07] MEDS: Acetaminophen 325 MG TAB PO PRN (20:40)
[2022-10-08] MEDS: Lorazepam 0.5 MG TAB PO SCH ×2 (00:14→05:48)
[2022-10-08] MEDS: Acetaminophen 325 MG TAB PO PRN (01:14)
[2022-10-08 07:11] LABS: #Basophils 0.1 thou/uL (0.0-0.2); #Eosinphils 0.3 thou/uL (0.0-0.7); #Monocytes 0.6 thou/uL (0.11-0.59); #Neutrophils 4.1 thou/uL (1.40-6.50); %Basophils 0.7 % (0.0-1.0); %Eosinophils 4.3 % (0.0-10.0); %Lymphocytes 28.4 % (21.0-51.0); %Monocytes 8.1 % (0.0-10.0); %Neutrophils 58.4 % (42.0-75.0); Mean Corpuscular HGB CONC 30.1 g/dL (32.0-36.0); Mean Corpuscular Hemoglobin 22.7 pg (27.0-31.0); Mean Corpuscular Volume 75.6 fl (78.0-98.0); Mean Platelet Volume 11.1 fL (7.4-10.4); Platelet Count 213 10x3/uL (130-400); RBC Distribution Width 22.1 % (11.5-14.5); Red Blood Cell (RBC) Count 3.52 mill/uL (4.20-5.40)
[2022-10-08 07:33] VITALS: BP 114/74; TEMP 98.1
[2022-10-08 07:33] LABS: Anion Gap 9 mmol/L (10-20); BUN (Urea Nitrogen) 5 mg/dL (7.0-18.7); Calc. Creatinine Clearance 148 mL/min (70-130); Calcium 8.5 mg/dL (7.8-10.44); Carbon Dioxide 28 mmol/L (22-29); Chloride 104 mmol/L (98-107); Estimated GFR 114; Glucose 91 mg/dL (70-105); Potassium 3.3 mmol/L (3.5-5.1); Sodium 138 mmol/L (136-145)
[2022-10-08] MEDS ORDERED: Potassium Chloride 20 MEQ TAB PO SCH (08:30)
[2022-10-08] MEDS: Folic Acid 1 MG TAB PO SCH (09:44)
[2022-10-08] MEDS: Multivit, Therapeutic 1 TAB PO SCH (09:44)
[2022-10-08] MEDS: Pantoprazole 40 MG VIAL IVP SCH (09:46)
[2022-10-08] MEDS ORDERED: Lorazepam 0.5 MG TAB PO PRN (18:36)
[2022-10-08] MEDS ORDERED: Thiamine 100 MG TAB PO SCH (18:45)
== END 2022-10-08 11:16 | disposition home or self-care (01) | DRG 369 ==
LOC: ERS 16:17 → IMCU/EMU 19:41 → SURG A 10-08 00:50
PROVIDERS: ADMIT Student in an Organized Health Care Education/Training Program; ATTEND Family Medicine
PROC: 0DJ08ZZ Inspection of Upper Intestinal Tract, Via Natural or Artificial Opening Endoscopic (ICD-10-PCS; principal; 2022-10-06)
PROC: 0W3P8ZZ Control Bleeding in Gastrointestinal Tract, Via Natural or Artificial Opening Endoscopic (ICD-10-PCS; 2022-10-06)
PROC: 30233N1 Transfusion of Nonautologous Red Blood Cells into Peripheral Vein, Percutaneous Approach (ICD-10-PCS; 2022-10-06)
DX: K22.6 Gastro-esophageal laceration-hemorrhage syndrome (principal); D62 Acute posthemorrhagic anemia; F10.239 Alcohol dependence with withdrawal, unspecified; K29.21 Alcoholic gastritis with bleeding; F41.9 Anxiety disorder, unspecified; K44.9 Diaphragmatic hernia without obstruction or gangrene; K21.9 Gastro-esophageal reflux disease without esophagitis; E87.6 Hypokalemia; R00.0 Tachycardia, unspecified; F17.210 Nicotine dependence, cigarettes, uncomplicated; Z98.891 History of uterine scar from previous surgery; Z82.49 Family history of ischemic heart disease and other diseases of the circulatory system; Z83.3 Family history of diabetes mellitus; Z71.41 Alcohol abuse counseling and surveillance of alcoholic; Z71.6 Tobacco abuse counseling
CPT/HCPCS: 36415; 36430; 71045; 80048; 80053; 80306; 80307; 81001; 83690; 84703; 85018; 85025; 85610; 85730; 86850; 86900; 86901; 87086; 88305; 93005; 96365; 96366; 96368; 96375; 99292; C9113; J2060; J2270; J2354; J2405; J2704; J3411; J3480; J3490; J7042; J7050; P9016

== ENCOUNTER 2023-04-07 23:40 | Inpatient (IN) | payer OTHER ==
[2023-04-08] MEDS ORDERED: Ketorolac Tromethamine 30 MG (1 mL) VIAL ONE
[2023-04-08 00:32] LABS: Bacteria/HPF None Seen HPF (None Seen); Bilirubin Negative (Negative); Blood, Urine Negative (Negative); CAUTI Indications for Culture Pelvic or flank pain; Clarity Clear (Clear); Glucose, Urine (Dipstick) Normal (Negative); Ketone, Urine Negative (Negative); Leukocyte Negative Leu/uL (Negative); Nitrite Negative (Negative); Protein, Urine (Dipstick) Negative (Neg-Trace); RBC/HPF 0-3 HPF (0-3); Specific Gravity, Urine 1.004 (1.002-1.036); Squamous Epithelial 0-3 HPF (0-3); WBC/HPF 0-3 HPF (0-3); pH, Urine 7.5 (5.0-9.0)
[2023-04-08 00:35] LABS: Urine Culture Reflex No No
[2023-04-08 00:45] LABS: #Basophils 0.1 thou/uL (0.0-0.2); #Eosinphils 0.1 thou/uL (0.0-0.7); #Monocytes 0.5 thou/uL (0.11-0.59); #Neutrophils 3.5 thou/uL (1.40-6.50); %Basophils 0.8 % (0.0-1.0); %Eosinophils 1.4 % (0.0-10.0); %Lymphocytes 34.4 % (21.0-51.0); %Monocytes 7.5 % (0.0-10.0); %Neutrophils 55.6 % (42.0-75.0); Hematocrit 16.1 % (36.0-47.0); Hemoglobin 4.3 g/dL (12.0-16.0); Mean Corpuscular HGB CONC 26.7 g/dL (32.0-36.0); Mean Corpuscular Hemoglobin 16.1 pg (27.0-31.0); Mean Corpuscular Volume 60.3 fl (78.0-98.0); Platelet Count 213 10x3/uL (130-400); RBC Distribution Width 21.3 % (11.5-14.5); Red Blood Cell (RBC) Count 2.67 mill/uL (4.20-5.40); White Blood Cell (WBC) Count 6.3 10x3/uL (4.8-10.8)
[2023-04-08 00:49] LABS: Critical Call w/ Read Back NUR.MVB@0048
[2023-04-08 01:09] LABS: ALT (SGPT) 8 U/L (8-55); AST (SGOT) 17 U/L (5-34); Albumin 3.6 g/dL (3.5-5.0); Alkaline Phosphatase 72 U/L (40-110); Anion Gap 14 mmol/L (10-20); BUN (Urea Nitrogen) 5 mg/dL (7.0-18.7); Bilirubin, Total 0.4 mg/dL (0.2-1.2); Calc. Creatinine Clearance 0 mL/min (70-130); Calcium 8.6 mg/dL (7.8-10.44); Carbon Dioxide 24 mmol/L (22-29); Chloride 104 mmol/L (98-107); Estimated GFR 78; Globulin 3.1 g/dL (2.4-3.5); Glucose 98 mg/dL (70-105); Lipase 20 U/L (8-78); Magnesium 1.8 mg/dL (1.6-2.6); Potassium 3.5 mmol/L (3.5-5.1); Protein, Total 6.7 g/dL (6.0-8.3); Sodium 138 mmol/L (136-145)
[2023-04-08 01:18] LABS: Troponin I Less than 0.010 ng/mL (< 0.028)
[2023-04-08 01:26] LABS: Anisocytosis MODERATE=16-30 cells HPF (0-5); CellaVision Operator ID LAB.JMM; Hypochromia MARKED = >30 cells HPF (0-5); Microcytosis SLIGHT = 6-15 cells HPF (0-5); Platelet Adequacy Comment Platelets Normal; Polychromasia SLIGHT = 2-3 cells HPF (0-2)
[2023-04-08] MEDS ORDERED: Lorazepam 1 MG TAB PO PRN (02:29)
[2023-04-08] MEDS ORDERED: Acetaminophen 650 MG Suppository PR PRN (02:29)
[2023-04-08] MEDS ORDERED: Lorazepam 2 MG/ML VIAL IM PRN (02:29)
[2023-04-08] MEDS ORDERED: Acetaminophen 325 MG TAB PO PRN (02:29)
[2023-04-08] MEDS ORDERED: Ondansetron ODT 4 MG TAB PO PRN (02:29)
[2023-04-08] MEDS ORDERED: Electrolyte Replacement Protocol 1 EACH FS PRN (02:30)
[2023-04-08 04:31] VITALS: BMI 29.7
[2023-04-08] MEDS ORDERED: ALPRAZolam 0.25 MG TAB PO SCH (04:45)
[2023-04-08] MEDS: Thiamine HCl 200 MG/2 ML VIAL SLOW IVP SCH (04:45)
[2023-04-08 04:58] LABS: Phosphorus 3.1 mg/dL (2.3-4.7)
[2023-04-08 04:58] LABS: INR-International Normal Ratio 1.1; Prothrombin Time 14.3 sec (12.0-14.7)
[2023-04-08 04:59] LABS: PTT 30.9 sec (22.9-36.1)
[2023-04-08 05:00] LABS: ALT (SGPT) 7 U/L (8-55); AST (SGOT) 14 U/L (5-34); Albumin 3.5 g/dL (3.5-5.0); Alkaline Phosphatase 67 U/L (40-110); Anion Gap 11 mmol/L (10-20); BUN (Urea Nitrogen) 5 mg/dL (7.0-18.7); Bilirubin, Total 0.7 mg/dL (0.2-1.2); Calc. Creatinine Clearance 128 mL/min (70-130); Calcium 8.4 mg/dL (7.8-10.44); Carbon Dioxide 24 mmol/L (22-29); Chloride 106 mmol/L (98-107); Estimated GFR 85; Globulin 2.8 g/dL (2.4-3.5); Glucose 95 mg/dL (70-105); Iron Binding Capacity, Total 424 mcg/dL (265-497); Magnesium 1.7 mg/dL (1.6-2.6); Protein, Total 6.3 g/dL (6.0-8.3); Sodium 137 mmol/L (136-145)
[2023-04-08 05:04] LABS: Troponin I Less than 0.010 ng/mL (< 0.028)
[2023-04-08 05:24] LABS: Ferritin 2.36 ng/mL (10-291)
[2023-04-08 05:25] LABS: Iron 29 ug/dL (50-170)
[2023-04-08] MEDS ORDERED: Magnesium 2 GM/50 ML(in water) 2 GM in Premix 1 BAG IVPB SCH (06:00)
[2023-04-08] MEDS: Multivit, Therapeutic 1 TAB PO SCH (08:17)
[2023-04-08] MEDS: Folic Acid 1 MG TAB PO SCH (08:17)
[2023-04-08] MEDS: Pantoprazole 40 MG VIAL IVP SCH ×2 (09:07→20:56)
[2023-04-08] MEDS ORDERED: Cyanocobalamin 1000 MCG/ML VIAL IM SCH (10:45)
[2023-04-08] MEDS ORDERED: Iron Sucrose Complex 200 MG in Sodium Chloride 0.9% 100 ML IVPB SCH (10:45)
[2023-04-08] MEDS ORDERED: Iron, Sodium Ferric Gluconate 250 MG in Sodium Chloride 0.9% 250 ML 250 ML IVPB SCH (11:15)
[2023-04-08] MEDS ORDERED: Lorazepam 0.5 MG TAB PO SCH (11:45)
[2023-04-08] MEDS: ALPRAZolam 0.25 MG TAB PO PRN ×2 (12:06→23:59)
[2023-04-08 12:53] LABS: #Eosinphils 0.1 thou/uL (0.0-0.7); #Monocytes 0.4 thou/uL (0.11-0.59); #Neutrophils 4.7 thou/uL (1.40-6.50); %Basophils 0.5 % (0.0-1.0); %Eosinophils 1.1 % (0.0-10.0); %Lymphocytes 29.6 % (21.0-51.0); %Monocytes 5.5 % (0.0-10.0); Mean Corpuscular HGB CONC 30.8 g/dL (32.0-36.0); Mean Corpuscular Hemoglobin 21.5 pg (27.0-31.0); Mean Platelet Volume 10.3 fL (7.4-10.4); Platelet Count 191 10x3/uL (130-400); RBC Distribution Width 28.7 % (11.5-14.5); Red Blood Cell (RBC) Count 3.63 mill/uL (4.20-5.40); White Blood Cell (WBC) Count 7.4 10x3/uL (4.8-10.8)
[2023-04-08 14:13] LABS: Hematocrit 25.3 % (36.0-47.0); Hemoglobin 7.8 g/dL (12.0-16.0)
[2023-04-08 14:14] LABS: Mean Corpuscular Volume 69.7 fl (78.0-98.0)
[2023-04-08 17:07] LABS: Hematocrit 27.7 % (36.0-47.0); Hemoglobin 8.4 g/dL (12.0-16.0)
[2023-04-08 21:09] LABS: Hematocrit 25.6 % (36.0-47.0); Hemoglobin 7.9 g/dL (12.0-16.0)
[2023-04-09] MEDS ORDERED: Lorazepam 1 MG TAB PO PRN (02:30)
[2023-04-09] MEDS: Thiamine HCl 200 MG/2 ML VIAL SLOW IVP SCH (03:39)
[2023-04-09 04:58] LABS: Hematocrit 24.9 % (36.0-47.0); Hemoglobin 7.5 g/dL (12.0-16.0)
[2023-04-09 05:47] LABS: Anion Gap 10 mmol/L (10-20); BUN (Urea Nitrogen) 4 mg/dL (7.0-18.7); Calc. Creatinine Clearance 125 mL/min (70-130); Calcium 8.4 mg/dL (7.8-10.44); Carbon Dioxide 23 mmol/L (22-29); Chloride 108 mmol/L (98-107); Estimated GFR 82; Glucose 89 mg/dL (70-105); Magnesium 2.2 mg/dL (1.6-2.6); Phosphorus 2.7 mg/dL (2.3-4.7); Potassium 3.6 mmol/L (3.5-5.1); Sodium 137 mmol/L (136-145)
[2023-04-09] MEDS ORDERED: Iron, Sodium Ferric Gluconate 250 MG in Sodium Chloride 0.9% 250 ML 250 ML IVPB SCH (06:00)
[2023-04-09] MEDS: Folic Acid 1 MG TAB PO SCH (09:39)
[2023-04-09] MEDS: Pantoprazole 40 MG VIAL IVP SCH ×2 (09:39→21:16)
[2023-04-09] MEDS: Multivit, Therapeutic 1 TAB PO SCH (09:39)
[2023-04-09] MEDS: Cyanocobalamin (Vitamin B-12) 1,000 MCG TAB PO SCH (09:39)
[2023-04-09] MEDS: ALPRAZolam 0.25 MG TAB PO PRN (11:21)
[2023-04-09] MEDS ORDERED: GoLYTELY 4,000 ml Bottle PO SCH (16:00)
[2023-04-10] MEDS ORDERED: Lorazepam 1 MG TAB PO PRN ×2 (02:30→11:38)
[2023-04-10] MEDS: Thiamine HCl 200 MG/2 ML VIAL SLOW IVP SCH (03:03)
[2023-04-10 06:16] LABS: Phosphorus 3.3 mg/dL (2.3-4.7)
[2023-04-10 07:45] LABS: Hematocrit 28.2 % (36.0-47.0); Hemoglobin 8.3 g/dL (12.0-16.0)
[2023-04-10] MEDS ORDERED: Magnesium 2 GM/50 ML(in water) 2 GM in Premix 1 BAG IVPB SCH (08:00)
[2023-04-10] MEDS ORDERED: PROPOFOL 60 ML ONE (08:44)
[2023-04-10] MEDS ORDERED: fentaNYL PF 100 MCG/2 ML SYRINGE ONE (08:45)
[2023-04-10] MEDS ORDERED: Ondansetron PF 4 MG/2 ML Vial ONE (08:45)
[2023-04-10] MEDS ORDERED: Midazolam HCl 2 mg/2 ml Vial ONE (08:49)
[2023-04-10] MEDS ORDERED: Ondansetron HCl/PF 4 MG/2 ML Vial IVP PRN (09:30)
[2023-04-10] MEDS ORDERED: Promethazine HCl 25 MG/ML VIAL IM PRN (09:30)
[2023-04-10] MEDS: Cyanocobalamin (Vitamin B-12) 1,000 MCG TAB PO SCH (10:11)
[2023-04-10] MEDS: Pantoprazole 40 MG VIAL IVP SCH (10:11)
[2023-04-10] MEDS: Folic Acid 1 MG TAB PO SCH (10:11)
[2023-04-10] MEDS: Multivit, Therapeutic 1 TAB PO SCH (10:11)
[2023-04-10 14:03] VITALS: BP 105/68; TEMP 98.2
[2023-04-11] MEDS ORDERED: Thiamine 100 MG TAB PO SCH (02:30)
[2023-04-11] MEDS ORDERED: Lorazepam 0.5 MG TAB PO PRN ×2 (02:30→11:38)
== END 2023-04-10 15:38 | disposition home or self-care (01) | DRG 394 ==
LOC: ERS 23:40 → 2NO 04-08 02:21 → MSONC 04-09 15:52
PROVIDERS: ADMIT Family Medicine; ATTEND Internal Medicine
PROC: 0DB98ZX Excision of Duodenum, Via Natural or Artificial Opening Endoscopic, Diagnostic (ICD-10-PCS; principal; 2023-04-08)
PROC: 30233N1 Transfusion of Nonautologous Red Blood Cells into Peripheral Vein, Percutaneous Approach (ICD-10-PCS; 2023-04-10)
PROC: 0DJD8ZZ Inspection of Lower Intestinal Tract, Via Natural or Artificial Opening Endoscopic (ICD-10-PCS; 2023-04-10)
DX: K64.8 Other hemorrhoids (principal); K62.5 Hemorrhage of anus and rectum; D50.9 Iron deficiency anemia, unspecified; K21.9 Gastro-esophageal reflux disease without esophagitis; F17.210 Nicotine dependence, cigarettes, uncomplicated; F41.9 Anxiety disorder, unspecified; I10 Essential (primary) hypertension; F10.20 Alcohol dependence, uncomplicated; E53.8 Deficiency of other specified B group vitamins; K29.80 Duodenitis without bleeding; K57.30 Diverticulosis of large intestine without perforation or abscess without bleeding; Z98.890 Other specified postprocedural states; Z79.899 Other long term (current) drug therapy
CPT/HCPCS: 36415; 36430; 71045; 76705; 80048; 80053; 81001; 82274; 82607; 82728; 83540; 83550; 83690; 83735; 83880; 84100; 84425; 84443; 84484; 85014; 85018; 85025; 85046; 85379; 85610; 85730; 86850; 86900; 86901; 88305; 93005; 94760; 96361; 96374; C9113; J1885; J2250; J2405; J2704; J2916; J3411; J3420; J3475; J7050; P9016